=== PATIENT | male | born 1950 | race Caucasian/White ===

== ENCOUNTER → 2018-03-30 09:30 | Outpatient (CLI) | payer MEDICARE, OTHER ==
[2015-12-16 06:16] VITALS: BMI 27.8
[~2018-03-30 09:30] MED LIST: ALPHAGAN P 0.155 ML LEFT EYE; BETAPACE 80 MG80 MG PO; EFFEXOR75 MG PO; ELIQUIS5 MG PO; HYDROCODONE-APA1 TAB PO; LIPITOR10 MG PO; NEURONTIN600 MG PO; PLAVIX75 MG PO; XALATAN 0.0052.5 ML EACH EYE
[2018-03-30 11:39] LABS: VANCOMYCIN - TROUGH 20.7 ug/mL (10.0-20.0)
== END | disposition home or self-care (01) ==
LOC: D.LABREF 09:30
PROVIDERS: Orthopaedic Surgery
DX: L03.116 Cellulitis of left lower limb (principal)